=== PATIENT | female | born 1960 | race Caucasian/White ===

== ENCOUNTER 2017-01-23 19:11 | Emergency (ER) | payer OTHER ==
[~2017-01-23] VITALS: Ht 162.6 cm; Wt 72.3 kg
[~2017-01-23 19:11] MED LIST: CITRATE OF MAG296 ML PO; COLACE100 MG PO; MULTIPLE VITAM1 EACH PO
[2017-01-23] MEDS ORDERED: MOBIC15 MG PO (20:20)
[2017-01-23 20:40] VITALS: BP 120/68
== END 2017-01-23 20:41 | disposition home or self-care (01) ==
LOC: EME 19:11
PROC: 2W3CX1Z Immobilization of Right Lower Arm using Splint (ICD-10-PCS; principal; 2017-01-23)
DX: M65.4 Radial styloid tenosynovitis [de Quervain] (principal)
CPT/HCPCS: 99281; 99284